=== PATIENT | male | born 1985 | race Caucasian/White ===

== ENCOUNTER 2017-09-28 18:44 | Emergency (ER) | payer OTHER ==
[~2017-09-28] VITALS: Ht 172.7 cm; Wt 85.7 kg
[2017-09-28] MEDS ORDERED: ONDANSETRON PF 4 MG/2 ML VIAL. IV ONE (19:30)
[2017-09-28] MEDS ORDERED: IV NORMAL SALINE 1,000ML 1,000 ML IV ONE (19:30)
--- NOTE | 2017-09-28 19:40 | PHYS DOC ---
Adult General Chief Complaint Chief Complaint: DIARRHEA HPI HPI 32-year-old male presents with 2 day history of fever, body aches, postnasal drip. The patient was managing the symptoms at home, but he developed a fever of up to 104 today. He also has had one episode of vomiting and multiple episodes of watery diarrhea. He denies blood in either of these. He has not urinated since this morning so he came to the ED for evaluation. He has no known sick contacts. He denies any new foods or bad food exposure. He has not been camping. His last dose of ibuprofen was prior to arrival. The fever has improved by the time he got here. Patient denies cough, shortness of breath, or chest pain. Review of Systems Review of Systems Constitutional: Denies fever or chills [] Eyes: Denies change in visual acuity, redness, or eye pain [] HENT: Piost nasal drip, denies sore throat [] Respiratory: Denies cough or shortness of breath [] Cardiovascular: No additional information not addressed in HPI [] GI: Denies abdominal pain. Has mild nausea, 1 episode of vomiting, multiple episodes of diarrhea [] : Denies dysuria or hematuria [] Musculoskeletal: Generalized body aches. [] Integument: Denies rash or skin lesions [] Neurologic: Denies headache, focal weakness or sensory changes [] Endocrine: Denies polyuria or polydipsia [] All other systems were reviewed and found to be within normal limits, except as documented in this note. Current Medications Current Medications Current Medications Medications (Trade) Dose Ordered Sig/Cassandra Start Time Stop Time Status Last Admin Dose Admin Ondansetron HCl (Zofran) 4 mg 1X ONCE 09/28/17 19:30 09/28/17 19:31 DC Sodium Chloride 1,000 ml @ 1,000 mls/hr 1X ONCE 09/28/17 19:30 09/28/17 20:29 Allergies Allergies Allergies Coded Allergies Type Severity Reaction Last Updated Verified Penicillins Allergy Unknown 09/28/17 Yes Sulfa (Sulfonamide Antibiotics) Allergy Unknown 09/28/17 Yes Physical Exam Physical Exam Constitutional: Well developed, well nourished, no acute distress, non-toxic appearance. [] HENT: Normocephalic, atraumatic, bilateral external ears normal, oropharynx moist, no oral exudates, nose normal. [] Eyes: PERRLA, EOMI, conjunctiva normal, no discharge. [] Neck: Normal range of motion, no tenderness, supple, no stridor. [] Cardiovascular:Heart rate regular rhythm, no murmur [] Lungs & Thorax: Bilateral breath sounds clear to auscultation [] Abdomen: Bowel sounds normal, soft, no tenderness, no masses, no pulsatile masses. [] Skin: Warm, dry, no erythema, no rash. [] Back: No tenderness, no CVA tenderness. [] Extremities: No tenderness, no cyanosis, no clubbing, ROM intact, no edema. [] Neurologic: Alert and oriented X 3, normal motor function, normal sensory function, no focal deficits noted. [] Psychologic: Affect normal, judgement normal, mood normal. [] EKG EKG [] Radiology/Procedures Radiology/Procedures [] Course & Med Decision Making Course & Med Decision Making Pertinent Labs and Imaging studies reviewed. (See chart for details) The patient's labs are significant for an elevated creatinine 1.5. I suspect this is related to his acute dehydration from diarrhea. He has no history of kidney problems. The patient has a viral gastroenteritis. I have advised that he drink plenty fluids and get rest at home. I will discharge him with Zofran. [] Dragon Disclaimer Dragon Disclaimer This electronic medical record was generated, in whole or in part, using a voice recognition dictation system. Departure Departure: Referrals: PCP,NO (PCP) Scripts Ondansetron (ZOFRAN ODT) 8 Mg Tab.rapdis 8 MG PO Q8HRS PRN for NAUSEA, #14 Prov: EDGAR LOBATO DO 09/28/17 EDGAR LOBATO DO Sep 28, 2017 19:40
[2017-09-28 19:55] LABS: BASO % 0 % (0-3); EOS % 0 % (0-3); HEMATOCRIT 46.8 % (39.0-53.0); HEMOGLOBIN 15.8 g/dL (13.0-17.5); LYMPH # 1.4 x10^3/uL (1.0-4.8); LYMPH % 18 % (24-48); MEAN CORPUSCULAR HEMOGLOBIN 31 pg (25-35); MEAN CORPUSCULAR HGB CONC 34 g/dL (31-37); MEAN CORPUSCULAR VOLUME 92 fL (79-100); MONO # 0.4 x10^3/uL (0.0-1.1); MONO % 6 % (0-9); NEUT # 5.9 x10^3uL (1.8-7.7); NEUT % 76 % (31-73); PLATELET COUNT 200 x10^3/uL (140-400); RED CELL DISTRIBUTION WIDTH 12.6 % (11.5-14.5); WHITE BLOOD COUNT 7.8 x10^3/uL (4.0-11.0)
[2017-09-28 20:01] LABS: CALCIUM 9.5 mg/dL (8.5-10.1); CREATININE 1.5 mg/dL (0.7-1.3); GFR 53.9; POTASSIUM 3.8 mmol/L (3.5-5.1)
[2017-09-28 20:14] VITALS: BP 116/56
[2017-09-28] MEDS ORDERED: ONDA8TAB12 PO (20:35)
== END 2017-09-28 20:38 | disposition home or self-care (01) ==
LOC: ER 18:44
DX: A08.4 Viral intestinal infection, unspecified (principal); R09.82 Postnasal drip; Z88.0 Allergy status to penicillin; Z88.2 Allergy status to sulfonamides
CPT/HCPCS: 36415; 80048; 85025; 96361; 96374; 99284; J2405; J7030

== ENCOUNTER 2018-04-04 10:58 | Emergency (ER) | payer OTHER ==
[~2018-04-04] VITALS: Ht 172.7 cm; Wt 85.7 kg
[~2018-04-04 10:58] MED LIST: ONDA8TAB12 PO
--- NOTE | 2018-04-04 12:00 | PHYS DOC ---
Past History Past Medical History: No Pertinent History Past Surgical History: No Surgical History Alcohol Use: Rarely Drug Use: None Adult General Chief Complaint Chief Complaint: GROIN PAIN [facility] HPI Patient is a 33 year old male who presents with complaining of left inguinal pain for the last 2 days. Patient states he was lifting about 20-25 pounds weight and felt a pop in left inguinal area and since then has pain in left groin that usually happen with lifting or standing up as a sharp pain without radiation. Patient denies abdominal pain, fever and chills, urinary symptom, bulging in left groin, history of the same pain. Review of Systems Review of Systems Constitutional: Denies fever or chills [] Eyes: Denies change in visual acuity, redness, or eye pain [] HENT: Denies nasal congestion or sore throat [] Respiratory: Denies cough or shortness of breath [] Cardiovascular: No additional information not addressed in HPI [] GI: Denies abdominal pain, nausea, vomiting, bloody stools or diarrhea [] : Denies dysuria or hematuria [] Musculoskeletal: Denies back pain or joint pain [] Integument: Denies rash or skin lesions [] Neurologic: Denies headache, focal weakness or sensory changes [] Endocrine: Denies polyuria or polydipsia [] All other systems were reviewed and found to be within normal limits, except as documented in this note. Allergies Allergies Allergies Coded Allergies Type Severity Reaction Last Updated Verified Penicillins Allergy Unknown 09/28/17 Yes Sulfa (Sulfonamide Antibiotics) Allergy Unknown 09/28/17 Yes Physical Exam Physical Exam Constitutional: Well developed, well nourished, no acute distress, non-toxic appearance. [] HENT: Normocephalic, atraumatic Eyes: PERRLA, EOMI, conjunctiva normal, no discharge. [] Neck: Normal range of motion, no tenderness, supple, no stridor. [] Cardiovascular:Heart rate regular rhythm, no murmur [] Lungs & Thorax: Bilateral breath sounds clear to auscultation [] Abdomen: Bowel sounds normal, soft, no tenderness, no masses, no pulsatile masses. Genital exam with present of electronics scale tester showed unremarkable exam with no sign of hernia supine and standing position. Skin: Warm, dry, no erythema, no rash. [] Back: No tenderness, no CVA tenderness. [] Extremities: No tenderness, no cyanosis, no clubbing, ROM intact, no edema. [] Neurologic: Alert and oriented X 3, normal motor function, normal sensory function, no focal deficits noted. [] Psychologic: Affect normal, judgement normal, mood normal. [] Current Patient Data Vital Signs Vital Signs Date Time Temp Pulse Resp B/P (MAP) Pulse Ox O2 Delivery O2 Flow Rate FiO2 04/04/18 11:25 97.9 64 16 98 Room Air EKG EKG [] Radiology/Procedures Radiology/Procedures [][address] [address] IMAGING REPORT Signed PATIENT: ANU NOBLE ACCOUNT: [id number] : 1985 LOCATION: ER AGE: 33 SEX: M EXAM STATUS: REG ER ORD. PHYSICIAN: KARINA UMANZOR MD REASON: left groin pain, possible hernia PROCEDURE: ABDOMEN LTD EXAM: Abdomen sonogram. HISTORY: Left groin pain. TECHNIQUE: Sonographic imaging of the abdomen was performed. COMPARISON: None. FINDINGS: There is no evidence of an inguinal hernia. There is subjective pain within the left inguinal region during a Valsalva maneuver. IMPRESSION: No sonographic evidence of an inguinal hernia. There is subjective pain within the left inguinal region during a Valsalva maneuver. Correlate for a possible muscular strain. Electronically signed by: Angela Jenkins MD (04/04/2018 12:42 PM) [facility] DICTATED AND SIGNED BY: ANGELA JENKINS MD DATE: 04/04/18 1241 CC: ODETTE CARSON MD; KARINA UMANZOR MD ~ Course & Med Decision Making Course & Med Decision Making Pertinent Imaging studies reviewed. (See chart for details) Evaluation of patient in ER showed 33-year-old male patient with complaining of pain in left groin after lifting face. Patient had unremarkable physical exam for hernia and ultrasound did not show sign of hernia. Plan discharge patient home to diagnose of muscle strain and instruction to apply ice on the affected area. Dragon Disclaimer Dragon Disclaimer This electronic medical record was generated, in whole or in part, using a voice recognition dictation system. Departure Departure: Impression: Primary Impression: Strain of left inguinal muscle Disposition: HOME, SELF-CARE (at 1251) Condition: STABLE Referrals: ODETTE CARSON MD (PCP) Patient Instructions: Muscle Strain Additional Instructions: Drink plenty of liquids Follow-up with your primary care physician in 3-5 days Return to ER if not getting better Apply ice on the affected area Scripts Ibuprofen (IBUPROFEN) 800 Mg Tablet 1 TAB PO TID for pain, #30 TAB Prov: KARINA UMANZOR MD 04/04/18 KARINA UMANZOR MD Apr 04, 2018 12:00
--- NOTE | 2018-04-04 12:46 | RAD ---
EXAM: Abdomen sonogram. HISTORY: Left groin pain. TECHNIQUE: Sonographic imaging of the abdomen was performed. COMPARISON: None. FINDINGS: There is no evidence of an inguinal hernia. There is subjective pain within the left inguinal region during a Valsalva maneuver. IMPRESSION: No sonographic evidence of an inguinal hernia. There is subjective pain within the left inguinal region during a Valsalva maneuver. Correlate for a possible muscular strain. Electronically signed by: Angela Thornton MD (04/04/2018 12:42 PM) [place] [id number]
[2018-04-04] MEDS ORDERED: IBUP800T19 PO (12:54)
[2018-04-04 13:00] VITALS: BP 138/76
== END 2018-04-04 13:02 | disposition home or self-care (01) ==
LOC: ER 10:58
DX: S39.011A Strain of muscle, fascia and tendon of abdomen, initial encounter (principal); Z88.0 Allergy status to penicillin; Z88.2 Allergy status to sulfonamides; X50.9XXA Other and unspecified overexertion or strenuous movements or postures, initial encounter; Y93.89 Activity, other specified; Y92.89 Other specified places as the place of occurrence of the external cause; Y99.8 Other external cause status
CPT/HCPCS: 76705; 99284